=== PATIENT | male | born 1995 | race Caucasian/White ===

== ENCOUNTER 2017-02-07 13:43 | Emergency (ER) | payer OTHER ==
[2017-02-07] VITALS (7 sets, daily range): BP systolic 127–160; BP diastolic 64–101; PULSE 51–95; RESP 17–20; TEMP 97.6–97.9; O2SAT 96–99
[~2017-02-07] VITALS: Ht 177.8 cm; Wt 68.0 kg
[2017-02-07] MEDS ORDERED: ONDANSETRON HCL 4 MG/2 ML VIAL IV PUSH ONE ×2 (14:00→14:45)
[2017-02-07] MEDS ORDERED: SODIUM CHLORIDE 0.9% FLUSH 10 ML FLUSH IVF PRN (14:00)
[2017-02-07] MEDS ORDERED: SODIUM CHLOR 0.9% 1000 ML INJ 1,000 ML IV ONE (14:15)
[2017-02-07 14:18] LABS: AUTOMATED NEUTROPHIL # 9.6 TH/MM3 (1.8-7.7); BASOPHIL # 0.1 TH/MM3 (0-0.2); BASOPHIL % 0.6 % (0.0-2.0); EOSINOPHIL % 0.3 % (0.0-4.0); HEMATOCRIT 45.1 % (39.0-51.0); HEMO FLAGS DIFF FINAL; LYMPH % 15.2 % (9.0-44.0); LYMPHOCYTE # 1.9 TH/MM3 (1.0-4.8); MEAN CELL VOLUME 90.6 FL (80.0-100.0); MEAN CORPUSCULAR HEMOGLOBIN 30.2 PG (27.0-34.0); MEAN CORPUSCULAR HGB CONC 33.3 % (32.0-36.0); MONO % 4.7 % (0.0-8.0); NEUT % 79.2 % (16.0-70.0); PLATELET COUNT 359 TH/MM3 (150-450); RED BLOOD COUNT 4.98 MIL/MM3 (4.50-5.90); RED CELL DISTRIBUTION WIDTH 12.2 % (11.6-17.2); WHITE BLOOD COUNT 12.2 TH/MM3 (4.0-11.0)
--- NOTE | 2017-02-07 14:20 | PD ---
HPI Chief Complaint: OD/ Ingestion Time Seen by Provider: 13:49 Travel History International Travel<30 days: No Contact w/Intl Traveler<30days: No Traveled to known affect area: No History of Present Illness HPI The patient is a 21-year-old male who presents to the emergency department via private vehicle with his mother after an intentional overdose. The patient states that he had a "bad day "yesterday and subsequently took approximately 20 of his psychiatric pills earlier today. The patient has 2 different types of pills for anxiety/depression including Paxil10 mg and hydroxyzine 25 mg tablets. The patient took approximately 20 tablets one hour prior to arrival. He presents complaining of nausea and vomiting with dry heaves. The patient will not answer questions in regards to suicidal or homicidal ideation and will not expand on his "bad day "that he had yesterday. However, he denies any previous history of suicide attempts or suicidal ideation. The mother initially was present, was returning home to grab the patient's medications so we'll know which medications he ingested. He denies taking any medications that include Tylenol or salicylates. He denies illicit drug use or alcohol use today. The patient does work for an [employer] [facility] Past Medical History Narrative Medical Depression/anxiety Past Surgical History Narrative Surgical Ear surgery Social History Alcohol Use: Yes Tobacco Use: Yes Substance Use: Yes (will not expand on which illicit drugs he uses) Allergies-Medications (Allergen,Severity, Reaction): Coded Allergies: No Known Allergies (Unverified , 02/07/17) Reported Meds & Prescriptions Reported Meds & Active Scripts Active Reported Hydroxyzine HCl 10 Mg Tab 20 Mg PO TID Paroxetine (Paroxetine HCl) 10 Mg Tab 10 Mg PO DAILY Review of Systems Except as stated in HPI: all other systems reviewed are Neg Gastrointestinal: Positive: Nausea, Vomiting Psychiatric: Positive: Anxiety, Depression, Substance Abuse, Other (took 20 pills orally prior to arrival) Physical Exam Narrative GENERAL: Awake, alert, 21-year-old male appears his stated age and is actively dry heaving. SKIN: Focused skin assessment warm/dry. HEAD: Atraumatic. Normocephalic. EYES: Pupils equal and round. 4 mm bilateral and reactive. ENT: No nasal bleeding or discharge. Mucous membranes pink and moist. NECK: Trachea midline. No JVD. CARDIOVASCULAR: Regular rate and rhythm. No murmur appreciated. Heart rate in the 60s. RESPIRATORY: No accessory muscle use. Clear to auscultation. Breath sounds equal bilaterally. GASTROINTESTINAL: Abdomen soft, non-tender, nondistended. No rebound tenderness. MUSCULOSKELETAL: No obvious deformities. No clubbing. No cyanosis. No edema. NEUROLOGICAL: Awake and alert. No obvious cranial nerve deficits. Motor grossly within normal limits. Normal speech. PSYCHIATRIC: Slightly flat affect. Refuses to answer most questions. Data Data Last Documented VS Vital Signs Date Time Temp Pulse Resp B/P (MAP) Pulse Ox O2 Delivery O2 Flow Rate FiO2 02/07/17 16:39 56 18 127/66 (86) 98 02/07/17 15:32 Room Air 02/07/17 14:15 2.00 02/07/17 13:50 97.6 Orders Orders Electrocardiogram (02/07/17 13:55) Complete Blood Count With Diff (02/07/17 13:55) Comprehensive Metabolic Panel (02/07/17 13:55) Prothrombin Time / Inr (Pt) (02/07/17 13:55) Act Partial Throm Time (Ptt) (02/07/17 13:55) Urinalysis - C+S If Indicated (02/07/17 13:55) Iv Access Insert/Monitor (02/07/17 13:55) Ecg Monitoring (02/07/17 13:55) Oximetry (02/07/17 13:55) Psych Screen (02/07/17 13:55) Sodium Chloride 0.9% Flush (Ns Flush) (02/07/17 14:00) Call Poison Control (02/07/17 13:55) Drug Screen, Random Urine (02/07/17 13:55) Alcohol (Ethanol) (02/07/17 13:55) Salicylates (Aspirin) (02/07/17 13:55) Tylenol (Acetaminophen) (02/07/17 13:55) Ondansetron Inj (Zofran Inj) (02/07/17 14:00) Sodium Chlor 0.9% 1000 Ml Inj (Ns 1000 M (02/07/17 14:15) Ondansetron Inj (Zofran Inj) (02/07/17 14:45) Electrocardiogram (02/07/17 ) Labs Laboratory Tests Test 02/07/17 14:00 02/07/17 15:30 White Blood Count 12.2 TH/MM3 Red Blood Count 4.98 MIL/MM3 Hemoglobin 15.0 GM/DL Hematocrit 45.1 % Mean Corpuscular Volume 90.6 FL Mean Corpuscular Hemoglobin 30.2 PG Mean Corpuscular Hemoglobin Concent 33.3 % Red Cell Distribution Width 12.2 % Platelet Count 359 TH/MM3 Mean Platelet Volume 7.5 FL Neutrophils (%) (Auto) 79.2 % Lymphocytes (%) (Auto) 15.2 % Monocytes (%) (Auto) 4.7 % Eosinophils (%) (Auto) 0.3 % Basophils (%) (Auto) 0.6 % Neutrophils # (Auto) 9.6 TH/MM3 Lymphocytes # (Auto) 1.9 TH/MM3 Monocytes # (Auto) 0.6 TH/MM3 Eosinophils # (Auto) 0.0 TH/MM3 Basophils # (Auto) 0.1 TH/MM3 CBC Comment DIFF FINAL Differential Comment Prothrombin Time 11.1 SEC Prothromb Time International Ratio 1.0 RATIO Activated Partial Thromboplast Time 23.0 SEC Blood Urea Nitrogen 14 MG/DL Creatinine 0.83 MG/DL Random Glucose 107 MG/DL Total Protein 7.9 GM/DL Albumin 4.6 GM/DL Calcium Level 9.6 MG/DL Alkaline Phosphatase 128 U/L Aspartate Amino Transf (AST/SGOT) 40 U/L Alanine Aminotransferase (ALT/SGPT) 34 U/L Total Bilirubin 0.6 MG/DL Sodium Level 137 MEQ/L Potassium Level 3.6 MEQ/L Chloride Level 104 MEQ/L Carbon Dioxide Level 20.9 MEQ/L Anion Gap 12 MEQ/L Estimat Glomerular Filtration Rate 118 ML/MIN Salicylates Level LESS THAN 1.7 MG/DL Acetaminophen Level LESS THAN 2.0 MCG/ML Ethyl Alcohol Level LESS THAN 3 MG/DL Urine Color YELLOW Urine Turbidity CLOUDY Urine pH 6.0 Urine Specific [place] 1.032 Urine Protein 30 mg/dL Urine Glucose (UA) NEG mg/dL Urine Ketones 15 mg/dL Urine Occult Blood NEG Urine Nitrite NEG Urine Bilirubin NEG Urine Leukocyte Esterase NEG Urine RBC 4-9 /hpf Urine WBC 6-8 /hpf Urine Squamous Epithelial Cells 0-5 /hpf Urine Amorphous Sediment MOD Urine Mucus MOD /lpf Microscopic Urinalysis Comment CULT NOT INDICATED Urine Opiates Screen NEG Urine Barbiturates Screen NEG Urine Amphetamines Screen NEG Urine Benzodiazepines Screen NEG Urine Cocaine Screen POS Urine Cannabinoids Screen POS MDM Medical Decision Making Medical Screen Exam Complete: Yes Emergency Medical Condition: Yes Medical Record Reviewed: Yes Interpretation(s) EKG reveals ectopic atrial rhythm versus junctional rhythm with inverted P waves with occasional upright P waves. Early repolarization. Laboratory Tests Test 02/07/17 14:00 02/07/17 15:30 White Blood Count 12.2 TH/MM3 Red Blood Count 4.98 MIL/MM3 Hemoglobin 15.0 GM/DL Hematocrit 45.1 % Mean Corpuscular Volume 90.6 FL Mean Corpuscular Hemoglobin 30.2 PG Mean Corpuscular Hemoglobin Concent 33.3 % Red Cell Distribution Width 12.2 % Platelet Count 359 TH/MM3 Mean Platelet Volume 7.5 FL Neutrophils (%) (Auto) 79.2 % Lymphocytes (%) (Auto) 15.2 % Monocytes (%) (Auto) 4.7 % Eosinophils (%) (Auto) 0.3 % Basophils (%) (Auto) 0.6 % Neutrophils # (Auto) 9.6 TH/MM3 Lymphocytes # (Auto) 1.9 TH/MM3 Monocytes # (Auto) 0.6 TH/MM3 Eosinophils # (Auto) 0.0 TH/MM3 Basophils # (Auto) 0.1 TH/MM3 CBC Comment DIFF FINAL Differential Comment Prothrombin Time 11.1 SEC Prothromb Time International Ratio 1.0 RATIO Activated Partial Thromboplast Time 23.0 SEC Blood Urea Nitrogen 14 MG/DL Creatinine 0.83 MG/DL Random Glucose 107 MG/DL Total Protein 7.9 GM/DL Albumin 4.6 GM/DL Calcium Level 9.6 MG/DL Alkaline Phosphatase 128 U/L Aspartate Amino Transf (AST/SGOT) 40 U/L Alanine Aminotransferase (ALT/SGPT) 34 U/L Total Bilirubin 0.6 MG/DL Sodium Level 137 MEQ/L Potassium Level 3.6 MEQ/L Chloride Level 104 MEQ/L Carbon Dioxide Level 20.9 MEQ/L Anion Gap 12 MEQ/L Estimat Glomerular Filtration Rate 118 ML/MIN Salicylates Level LESS THAN 1.7 MG/DL Acetaminophen Level LESS THAN 2.0 MCG/ML Ethyl Alcohol Level LESS THAN 3 MG/DL Urine Color YELLOW Urine Turbidity CLOUDY Urine pH 6.0 Urine Specific [place] 1.032 Urine Protein 30 mg/dL Urine Glucose (UA) NEG mg/dL Urine Ketones 15 mg/dL Urine Occult Blood NEG Urine Nitrite NEG Urine Bilirubin NEG Urine Leukocyte Esterase NEG Urine RBC 4-9 /hpf Urine WBC 6-8 /hpf Urine Squamous Epithelial Cells 0-5 /hpf Urine Amorphous Sediment MOD Urine Mucus MOD /lpf Microscopic Urinalysis Comment CULT NOT INDICATED Urine Opiates Screen NEG Urine Barbiturates Screen NEG Urine Amphetamines Screen NEG Urine Benzodiazepines Screen NEG Urine Cocaine Screen POS Urine Cannabinoids Screen POS EKG #2 revealed ectopic atrial bradycardia with a rate of 58. Differential Diagnosis Differential diagnosis includes intentional overdose, depressive disorder NOS, substance induced mood disorder, stress reaction, adjustment reaction, suicidal ideation. Narrative Course IV was established, labs are drawn and sent, and the patient was placed on cardiac telemetry monitoring and continuous pulse oximetry monitoring. EKG was ordered and interpreted. The mother went home to grab the bottles to identify which medications the patient took and how much of the medication the patient took. Poison control was contacted. The patient was administered Zofran 4 mg intravenously and 1 L of IV fluids. Salicylates and acetaminophen level are unremarkable. Tox screen is positive for cocaine and cannabinoids. Repeat EKG was performed. The patient medically cleared to be evaluated by psychiatry. Therefore, the patient will be transferred [facility] for further evaluation by psychiatry. Diagnosis Primary Impression: Drug overdose, intentional Qualified Codes: T50.902A - Poisoning by unspecified drugs, medicaments and biological substances, intentional self-harm, initial encounter Condition: Stable Cali York MD Feb 07, 2017 14:20
[2017-02-07 14:29] LABS: PROTHROMBIN TIME - PATIENT 11.1 SEC (9.8-11.6)
[2017-02-07] MEDS ORDERED: PARO10TA2 PO (14:33)
[2017-02-07] MEDS ORDERED: HYDR-755 PO (14:33)
[2017-02-07 15:14] LABS: CHLORIDE 104 MEQ/L (98-107); POTASSIUM 3.6 MEQ/L (3.5-5.1); SODIUM (NA) 137 MEQ/L (136-145)
[2017-02-07 15:17] LABS: ANION GAP 12 MEQ/L (5-15); BICARBONATE 20.9 MEQ/L (21.0-32.0); BLOOD UREA NITROGEN 14 MG/DL (7-18)
[2017-02-07 15:20] LABS: ALT (GPT) 34 U/L (9-52); AST (GOT) 40 U/L (15-39); GLOMERULAR FILTRATION RATE 118 ML/MIN (>89)
[2017-02-07 15:22] LABS: TOTAL BILIRUBIN ADULT 0.6 MG/DL (0.2-1.0)
[2017-02-07 15:23] LABS: ALKALINE PHOSPHATASE 128 U/L (45-117)
[2017-02-07 15:26] LABS: ALCOHOL LESS THAN 3 MG/DL (0-5)
[2017-02-07 15:41] LABS: BLOOD, URINE NEG (NEG); GLUCOSE,URINE NEG (NEG); KETONE, URINE 15 mg/dL (NEG); NITRITE,URINE NEG (NEG)
[2017-02-07 15:44] LABS: URINE COLOR YELLOW (YELLW/STRAW)
[2017-02-07 15:45] LABS: MUCUS URINE MOD /lpf (OCC)
[2017-02-07 15:46] LABS: COMMENT (UR) CULT NOT INDICATED; CULTURE IF INDICATED CULT NOT INDICATED; SQUAMOUS EPITHELIAL CELL URINE 0-5 /hpf (0-5)
[2017-02-07 16:00] LABS: ACETAMINOPHEN LESS THAN 2.0 MCG/ML (10.0-30.0)
--- NOTE | 2017-02-07 16:49 | EKG ---
Date Performed: 02/07/2017 Time Performed: 14:29:05 PTAGE: 21 years EKG: WANDERING ATRIAL PACEMAKER EARLY REPOLARIZATION ABNORMALITY TALL T-WAVES, SUGGESTS POSSIBLE HYPERKALEMIA ABNORMAL ECG NO PREVIOUS TRACING DOCTOR: Neville Gallardo Interpretating Date/Time 02/07/2017 16:47:57
--- NOTE | 2017-02-07 21:36 | EKG ---
Date Performed: 02/07/2017 Time Performed: 16:29:09 PTAGE: 21 years EKG: ECTOPIC ATRIAL BRADYCARDIA VOLTAGE CRITERIA FOR LVH, CONSIDER NORMAL VARIANT EARLY REPOLARI ZATION ABNORMALITY ABNORMAL RHYTHM ECG PREVIOUS TRACING : 02/07/2017 14.29 Compared to previous tracing, ectopic atrial bradycardia mendez s replaced wandering atrial pacemaker. DOCTOR: Neville Gallardo Interpretating Date/Time 02/07/2017 21:35:11
[2017-02-08 02:00] VITALS: BP 148/65; PULSE 80; RESP 17; O2SAT 97
[2017-02-08 06:45] VITALS: BP 119/58; PULSE 52; RESP 18
--- NOTE | 2017-02-08 09:56 | PD ---
History of Present Illness Chief Complaint: OD/ Ingestion Time Seen by Provider: 09:30 Travel History International Travel<30 Days: No Contact w/Intl Traveler<30days: No Known affected area: No Legal Status Legal Status: Weaver Act Weaver Act Signed By: Cali York MD [facility] History of Present Illness: History of Present Illness The patient is a 21-year-old male with reported history of anxiety who presents to the emergency department via private vehicle with his mother after an intentional overdose. As per Ed documentation " The patient states that he had a "bad day "yesterday and subsequently took approximately 20 of his psychiatric pills earlier today." He reports that he had an argument with his girlfriend and then " I took the pills to go to sleep not to kill myself. After I took the pills I started to feel sick and I told my mother that I had done something stupid and to bring me to the hospital". He also reports that he tried some cocaine earlier in the day which he denies that he uses on a regular basis. He was monitored here in secure environment with no behavioral concerns and no suicidality. EMR reviewed. No previous contact with [facility] psychiatry. Current toxicology is positive for cannabinoids as well as cocaine. He is alert, oriented male in no acute distress. Engaging, calm. Speech s clear and logical. No psychosis, no suzette, no suicidal or homicidal ideation, intent or plan. presents no objective clinical signs of major psychiatric illness. Wants to be released and " go surfing ". PFSH Past Medical History Anxiety: Yes Past Surgical History Surgical History: No Previous Surgery Psychiatric History Psychiatric History Hx Psychiatric Treatment: Patient with a hx of anxiety. Denies any inpatient treatment. Two outpatietn visits with Dr. Valdovinos. History of Inpatient Treatment: No Guns or firearms in home: No Social History Single male. Lives by self. works for [employer]. never . Hx Alcohol Use: Yes Hx Tobacco Use: Yes Hx Substance Use: Yes (cocaine, marijuana) Substance Use Type: Marijuana, Cocaine Hx of Substance Use Treatment: No Family Psychiatric History Father w history of anxiety Allergies-Medications (Allergen,Severity, Reaction): Coded Allergies: No Known Allergies (Unverified , 02/07/17) Reported Meds & Prescriptions Reported Meds & Active Scripts Active Reported Hydroxyzine HCl 10 Mg Tab 20 Mg PO TID Paroxetine (Paroxetine HCl) 10 Mg Tab 10 Mg PO DAILY Review of Systems Except as stated in HPI: all other systems reviewed are Neg Exam Alert: Yes [place]: Person (ox4) Mood: Calm Affect: Appropriate Speech: Clear, Logical Eye Contact: Normal Memory Intact: Comment (No gross abnormality) Hallucinations: Other (Negative) Delusions: No Suicidal: Ideation (Deneis any) Homicidal: Ideation (Deneis any) Insight/Judgement Fair. Not impaired. MDM Medical Decision Making Medical Record Reviewed: Yes Assessment/Plan The patient is a 21-year-old male with reported history of anxiety who presents to the emergency department after an intentional overdose. He was placed under Weaver act by ED physician . He admits to having had " a bad day " and that he took the pills to sleep and not with intention of harming himself. Furthermore he reached out for help after he took the medication and requested to be brought to the hospital. He denies any suicidality and while under observation did not present any behavioral dysregulation or suicidality. There is no evidence of any unstable mental illness as defined under per Weaver act. The Weaver act is lifted. He is clear from psychiatry for discharge from ED. Psychoeducation is provided. Orders Orders Electrocardiogram (02/07/17 13:55) Complete Blood Count With Diff (02/07/17 13:55) Comprehensive Metabolic Panel (02/07/17 13:55) Prothrombin Time / Inr (Pt) (02/07/17 13:55) Act Partial Throm Time (Ptt) (02/07/17 13:55) Urinalysis - C+S If Indicated (02/07/17 13:55) Iv Access Insert/Monitor (02/07/17 13:55) Ecg Monitoring (02/07/17 13:55) Oximetry (02/07/17 13:55) Psych Screen (02/07/17 13:55) Sodium Chloride 0.9% Flush (Ns Flush) (02/07/17 14:00) Call Poison Control (02/07/17 13:55) Drug Screen, Random Urine (02/07/17 13:55) Alcohol (Ethanol) (02/07/17 13:55) Salicylates (Aspirin) (02/07/17 13:55) Tylenol (Acetaminophen) (02/07/17 13:55) Ondansetron Inj (Zofran Inj) (02/07/17 14:00) Sodium Chlor 0.9% 1000 Ml Inj (Ns 1000 M (02/07/17 14:15) Ondansetron Inj (Zofran Inj) (02/07/17 14:45) Electrocardiogram (02/07/17 ) Diet Regular Basic (02/08/17 Breakfast) Results Vital Signs Date Time Temp Pulse Resp B/P (MAP) Pulse Ox O2 Delivery O2 Flow Rate FiO2 02/08/17 06:45 52 18 119/58 (78) 02/08/17 02:00 80 17 148/65 (92) 97 02/07/17 21:49 70 17 146/64 (91) 98 02/07/17 17:45 97.9 82 18 135/71 (92) 99 Room Air 02/07/17 16:39 56 18 127/66 (86) 98 02/07/17 15:32 61 18 134/67 (89) 96 Room Air 02/07/17 14:15 51 18 157/87 (110) 99 Nasal Cannula 2.00 02/07/17 14:05 99 Room Air 02/07/17 13:50 97.6 95 20 160/101 (120) 98 Laboratory Tests Test 02/07/17 14:00 02/07/17 15:30 White Blood Count 12.2 Red Blood Count 4.98 Hemoglobin 15.0 Hematocrit 45.1 Mean Corpuscular Volume 90.6 Mean Corpuscular Hemoglobin 30.2 Mean Corpuscular Hemoglobin Concent 33.3 Red Cell Distribution Width 12.2 Platelet Count 359 Mean Platelet Volume 7.5 Neutrophils (%) (Auto) 79.2 Lymphocytes (%) (Auto) 15.2 Monocytes (%) (Auto) 4.7 Eosinophils (%) (Auto) 0.3 Basophils (%) (Auto) 0.6 Neutrophils # (Auto) 9.6 Lymphocytes # (Auto) 1.9 Monocytes # (Auto) 0.6 Eosinophils # (Auto) 0.0 Basophils # (Auto) 0.1 CBC Comment DIFF FINAL Differential Comment Prothrombin Time 11.1 Prothromb Time International Ratio 1.0 Activated Partial Thromboplast Time 23.0 Blood Urea Nitrogen 14 Creatinine 0.83 Random Glucose 107 Total Protein 7.9 Albumin 4.6 Calcium Level 9.6 Alkaline Phosphatase 128 Aspartate Amino Transf (AST/SGOT) 40 Alanine Aminotransferase (ALT/SGPT) 34 Total Bilirubin 0.6 Sodium Level 137 Potassium Level 3.6 Chloride Level 104 Carbon Dioxide Level 20.9 Anion Gap 12 Estimat Glomerular Filtration Rate 118 Salicylates Level LESS THAN 1.7 Acetaminophen Level LESS THAN 2.0 Ethyl Alcohol Level LESS THAN 3 Urine Color YELLOW Urine Turbidity CLOUDY Urine pH 6.0 Urine Specific [place] 1.032 Urine Protein 30 Urine Glucose (UA) NEG Urine Ketones 15 Urine Occult Blood NEG Urine Nitrite NEG Urine Bilirubin NEG Urine Leukocyte Esterase NEG Urine RBC 4-9 Urine WBC 6-8 Urine Squamous Epithelial Cells 0-5 Urine Amorphous Sediment MOD Urine Mucus MOD Microscopic Urinalysis Comment CULT NOT INDICATED Urine Opiates Screen NEG Urine Barbiturates Screen NEG Urine Amphetamines Screen NEG Urine Benzodiazepines Screen NEG Urine Cocaine Screen POS Urine Cannabinoids Screen POS Diagnosis Primary Impression: Adjustment disorder Additional Impressions: Drug overdose, intentional Cannabis abuse Psychiatrically Cleared: Yes Referrals: [facility] (Out patient) call for appointment Departure Forms: Tests/Procedures Patient Instructions: General Instructions, Stress (ED) Med/ Other Pt Specific Info: No Change to Meds Disposition: 01 DISCHARGE HOME Condition: Stable Problem Qualifiers Primary Impression: Adjustment disorder Qualified Codes: F43.20 - Adjustment disorder, unspecified Additional Impressions: Drug overdose, intentional Qualified Codes: T50.902A - Poisoning by unspecified drugs, medicaments and biological substances, intentional self-harm, initial encounter Mary Wadsworth Feb 08, 2017 09:56
--- NOTE | 2017-02-08 10:17 | PD ---
Data Data Last Documented VS Vital Signs Date Time Temp Pulse Resp B/P (MAP) Pulse Ox O2 Delivery O2 Flow Rate FiO2 02/08/17 06:45 52 18 119/58 (78) 02/08/17 02:00 97 02/07/17 17:45 97.9 Room Air 02/07/17 14:15 2.00 Orders Orders Electrocardiogram (02/07/17 13:55) Complete Blood Count With Diff (02/07/17 13:55) Comprehensive Metabolic Panel (02/07/17 13:55) Prothrombin Time / Inr (Pt) (02/07/17 13:55) Act Partial Throm Time (Ptt) (02/07/17 13:55) Urinalysis - C+S If Indicated (02/07/17 13:55) Iv Access Insert/Monitor (02/07/17 13:55) Ecg Monitoring (02/07/17 13:55) Oximetry (02/07/17 13:55) Psych Screen (02/07/17 13:55) Sodium Chloride 0.9% Flush (Ns Flush) (02/07/17 14:00) Call Poison Control (02/07/17 13:55) Drug Screen, Random Urine (02/07/17 13:55) Alcohol (Ethanol) (02/07/17 13:55) Salicylates (Aspirin) (02/07/17 13:55) Tylenol (Acetaminophen) (02/07/17 13:55) Ondansetron Inj (Zofran Inj) (02/07/17 14:00) Sodium Chlor 0.9% 1000 Ml Inj (Ns 1000 M (02/07/17 14:15) Ondansetron Inj (Zofran Inj) (02/07/17 14:45) Electrocardiogram (02/07/17 ) Diet Regular Basic (02/08/17 Breakfast) Labs Laboratory Tests Test 02/07/17 14:00 02/07/17 15:30 White Blood Count 12.2 TH/MM3 Red Blood Count 4.98 MIL/MM3 Hemoglobin 15.0 GM/DL Hematocrit 45.1 % Mean Corpuscular Volume 90.6 FL Mean Corpuscular Hemoglobin 30.2 PG Mean Corpuscular Hemoglobin Concent 33.3 % Red Cell Distribution Width 12.2 % Platelet Count 359 TH/MM3 Mean Platelet Volume 7.5 FL Neutrophils (%) (Auto) 79.2 % Lymphocytes (%) (Auto) 15.2 % Monocytes (%) (Auto) 4.7 % Eosinophils (%) (Auto) 0.3 % Basophils (%) (Auto) 0.6 % Neutrophils # (Auto) 9.6 TH/MM3 Lymphocytes # (Auto) 1.9 TH/MM3 Monocytes # (Auto) 0.6 TH/MM3 Eosinophils # (Auto) 0.0 TH/MM3 Basophils # (Auto) 0.1 TH/MM3 CBC Comment DIFF FINAL Differential Comment Prothrombin Time 11.1 SEC Prothromb Time International Ratio 1.0 RATIO Activated Partial Thromboplast Time 23.0 SEC Blood Urea Nitrogen 14 MG/DL Creatinine 0.83 MG/DL Random Glucose 107 MG/DL Total Protein 7.9 GM/DL Albumin 4.6 GM/DL Calcium Level 9.6 MG/DL Alkaline Phosphatase 128 U/L Aspartate Amino Transf (AST/SGOT) 40 U/L Alanine Aminotransferase (ALT/SGPT) 34 U/L Total Bilirubin 0.6 MG/DL Sodium Level 137 MEQ/L Potassium Level 3.6 MEQ/L Chloride Level 104 MEQ/L Carbon Dioxide Level 20.9 MEQ/L Anion Gap 12 MEQ/L Estimat Glomerular Filtration Rate 118 ML/MIN Salicylates Level LESS THAN 1.7 MG/DL Acetaminophen Level LESS THAN 2.0 MCG/ML Ethyl Alcohol Level LESS THAN 3 MG/DL Urine Color YELLOW Urine Turbidity CLOUDY Urine pH 6.0 Urine Specific [place] 1.032 Urine Protein 30 mg/dL Urine Glucose (UA) NEG mg/dL Urine Ketones 15 mg/dL Urine Occult Blood NEG Urine Nitrite NEG Urine Bilirubin NEG Urine Leukocyte Esterase NEG Urine RBC 4-9 /hpf Urine WBC 6-8 /hpf Urine Squamous Epithelial Cells 0-5 /hpf Urine Amorphous Sediment MOD Urine Mucus MOD /lpf Microscopic Urinalysis Comment CULT NOT INDICATED Urine Opiates Screen NEG Urine Barbiturates Screen NEG Urine Amphetamines Screen NEG Urine Benzodiazepines Screen NEG Urine Cocaine Screen POS Urine Cannabinoids Screen POS MDM Supervised Visit with GIO: No Narrative Course This is a 21-year-old male who was initially brought in under [place] act for taking a handful of his Paxil that he takes for anxiety after getting in a fight with his girlfriend. He was medically cleared by the initial emergency department physician and was seen by psychiatry who lifted his Weaver act as the patient denies suicidality. On my exam he is awake and alert and is cooperative. Again he is denying suicidality. He states he took the pills to help him sleep, and did not intend to harm or kill himself. .His mom will pick him up. He will be discharged home with outpatient follow-up with psychiatry/ primary care physician this week. Diagnosis Primary Impression: Adjustment disorder Qualified Codes: F43.20 - Adjustment disorder, unspecified Additional Impressions: Drug overdose, intentional Qualified Codes: T50.902A - Poisoning by unspecified drugs, medicaments and biological substances, intentional self-harm, initial encounter Cannabis abuse Referrals: [facility] (Out patient) call for appointment Patient Instructions: General Instructions, Stress (ED) Departure Forms: Tests/Procedures Disposition: 01 DISCHARGE HOME Condition: Stable Moreno Zapata MD Feb 08, 2017 10:17
== END 2017-02-08 11:23 | disposition home or self-care (01) ==
LOC: PHED 13:43 → NEPJ 02-08 11:23
DX: T43.222A Poisoning by selective serotonin reuptake inhibitors, intentional self-harm, initial encounter (principal); T43.592A Poisoning by other antipsychotics and neuroleptics, intentional self-harm, initial encounter; F43.20 Adjustment disorder, unspecified; F12.10 Cannabis abuse, uncomplicated; R11.2 Nausea with vomiting, unspecified; R00.1 Bradycardia, unspecified; R94.31 Abnormal electrocardiogram [ECG] [EKG]; F41.9 Anxiety disorder, unspecified; F32.9 Major depressive disorder, single episode, unspecified
CPT/HCPCS: 80053; 80307; 81001; 85025; 85610; 85730; 93005; 96361; 96374; 99284; J2405; J7030